=== PATIENT | female | born 1960 | race Caucasian/White ===

== ENCOUNTER 2019-02-05 07:53 | Day surgery (SDC) | payer OTHER ==
[~2019-02-05 07:53] MED LIST: FOLGARD TABLET1 EACH PO; GLYCOTROL CAPS1 EACH PO; NAPROXEN SODIU550 M1 PO; ORPH100T PO; PAROXETINE HCL10 MG PO; TAMOXIFEN CITRA20 MG PO; UNITHROID50 MCG PO; ZINC LOZENGES1 EACH PO
[2019-02-05] MEDS ORDERED: NAPROXEN SODIU550 M1 PO (16:53)
== END 2019-02-05 17:35 | disposition home or self-care (01) ==
LOC: CIR.AMB 07:53
DX: N84.0 Polyp of corpus uteri (principal); N84.2 Polyp of vagina

== ENCOUNTER 2019-11-08 10:54 | Outpatient (CLI) | payer OTHER | END 2019-11-08 11:03 | disposition home or self-care (01) | LOC: MAMO-SONO 10:54 | DX: Z12.31 Encounter for screening mammogram for malignant neoplasm of breast (principal); N60.12 Diffuse cystic mastopathy of left breast; N60.11 Diffuse cystic mastopathy of right breast; Z85.3 Personal history of malignant neoplasm of breast ==

== ENCOUNTER 2020-12-03 12:49 | Outpatient (CLI) | payer OTHER | END 2020-12-03 13:21 | disposition HB | LOC: MAMO-SONO 12:49 | PROVIDERS: ATTEND Obstetrics & Gynecology Gynecology | DX: N60.11 Diffuse cystic mastopathy of right breast (principal); N60.12 Diffuse cystic mastopathy of left breast; Z85.3 Personal history of malignant neoplasm of breast ==

== ENCOUNTER 2022-07-15 11:25 | Outpatient (CLI) | payer OTHER | END 2022-07-15 11:35 | disposition home or self-care (01) | LOC: MAMO-SONO 11:25 | PROVIDERS: ATTEND Obstetrics & Gynecology Gynecology | DX: N60.12 Diffuse cystic mastopathy of left breast (principal); N60.11 Diffuse cystic mastopathy of right breast; Z85.3 Personal history of malignant neoplasm of breast; Z12.31 Encounter for screening mammogram for malignant neoplasm of breast ==

== ENCOUNTER → 2023-08-16 | Outpatient (CLI) | payer OTHER | END | disposition home or self-care (01) | LOC: MAMO-SONO 12:36 | PROVIDERS: ATTEND Specialist | DX: D05.11 Intraductal carcinoma in situ of right breast (principal); E04.1 Nontoxic single thyroid nodule ==

== ENCOUNTER 2024-08-22 11:00 | Outpatient (CLI) | payer OTHER | END 2024-08-22 11:07 | disposition home or self-care (01) | LOC: MAMO-SONO 11:00 | DX: N60.11 Diffuse cystic mastopathy of right breast (principal); N60.12 Diffuse cystic mastopathy of left breast; E04.1 Nontoxic single thyroid nodule; Z12.31 Encounter for screening mammogram for malignant neoplasm of breast ==

== ENCOUNTER 2025-08-27 10:15 | Outpatient (CLI) | payer OTHER | END 2025-08-27 10:19 | disposition home or self-care (01) | LOC: MAMO-SONO 10:15 | PROVIDERS: ATTEND Specialist | DX: E04.1 Nontoxic single thyroid nodule (principal); Z12.31 Encounter for screening mammogram for malignant neoplasm of breast ==